=== PATIENT | male | born 1990 | race African-American/Black ===

== ENCOUNTER 2023-11-03 16:21 | Observation (INO) ==
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
[2023-11-03 17:10] LABS: Basophils # (auto) 0.04 K/uL (0.00-0.20); Basophils % (auto) 0.7 %; Eosinophils # (auto) 0.38 K/uL (0.00-0.50); Eosinophils % (auto) 7.1 %; Hematocrit (blood only) 38.7 % (42.0-52.0); Hemoglobin 14.2 g/dl (14.0-18.0); Immature Granulocytes # (auto) 0.02 K/uL (0.01-0.20); Immature Granulocytes % (auto) 0.4 %; Lymphocytes # (auto) 1.93 K/uL (1.20-3.40); Lymphocytes % (auto) 36.1 %; Mean Corpuscular Hemoglobin 30.3 pg (25.0-34.0); Mean Corpuscular Hgb Conc 36.7 g/dL (32.0-36.0); Mean Corpuscular Volume 82.7 fL (80.0-100.0); Monocytes # (auto) 0.52 K/uL (0.11-0.59); Monocytes % (auto) 9.7 %; Neutrophils # (auto) 2.46 K/uL (1.40-6.50); Platelet Count 245 K/uL (130-400); RDW Coefficient of Variation 12.4 % (11.5-14.5); RDW Standard Deviation 37.7 fL (36.4-46.3); Red Blood Count 4.68 M/uL (4.70-6.10); White Blood Count 5.35 K/ul (4.8-10.8)
[2023-11-03 17:28] LABS: Albumin Globulin Ratio 1.4 (0.9-2); Albumin Level 4.3 gm/dl (3.4-5.0); BUN Creatinine Ratio 15.2 (10-20); Bilirubin,Total 0.4 mg/dl (0.2-1.0); Calcium 9.6 mg/dl (8.6-10.3); Creatinine Clr Calc Pharmacy 117.7 ml/min; Est GFR (African American) 113.9 ml/min; Est GFR (Non-African American) 98.3 ml/min; Globulin 3.1 gm/dl (2.5-4.0); Potassium 4.3 mmol/L (3.5-5.1); Total Protein 7.4 gm/dl (6.0-8.3)
--- NOTE | 2023-11-03 17:32 | XRay Report ---
XR chest 1V portable HISTORY: Chest pain, nonspecific COMPARISON: None. FINDINGS: The lungs are clear. Cardiac silhouette is normal in size. No pleural effusions. No pneumot horax. There is an old, healed left posterior sixth rib fracture. IMPRESSION: No acute process. ACT 112: Negative or not required by law. Electronically signed by: Clyde Martini M.D. 11/03/2023 5:30 PM
[2023-11-03 17:33] LABS: Troponin I High Sensitivity 4.4 pg/ml (0-20)
[2023-11-03 17:38] LABS: Partial Thromboplastin Ratio 0.9; Partial Thromboplastin Time 24 Seconds (21-31); Prothrombin Time 10.9 Seconds (9.0-12.0)
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
[2023-11-03] MEDS ORDERED: POLYETHYLENE (MIRALAX) 17 GM PACK PO PRN (21:39)
[2023-11-03] MEDS ORDERED: ONDANSETRON INJ 2 MG/ML 2 ML VIAL IV PRN (21:39)
[2023-11-03] MEDS: ATORVASTATIN 40 MG TAB PO SCH (23:02)
[2023-11-03] MEDS: ACETAMINOPHEN 325 MG TAB PO PRN (23:03)
[2023-11-03] MEDS: ENOXAPARIN INJ 40 MG/0.4 ML SYR SQ SCH (23:03)
--- NOTE | 2023-11-04 07:15 | Electrocardiogram Report ---
Test Reason : Blood Pressure : / mmHG Vent. Rate : 068 BPM Atrial Rate : 068 BPM P-R Int : 156 ms QRS Dur : 084 ms QT Int : 366 ms P-R-T Axes : 058 003 -56 degrees QTc Int : 389 ms Normal sinus rhythm T wave abnormality, consider inferior ischemia T wave abnormality, consider anterolateral ischemia Abnormal ECG No previous ECGs available Confirmed by Kody Carrasquillo ([id number]) on 11/04/2023 7:15:07 AM Referred By: Alejandro CRAIN Confirmed By:Brandon Carrasquillo
--- NOTE | 2023-11-04 07:15 | Electrocardiogram Report ---
Test Reason : Blood Pressure : / mmHG Vent. Rate : 061 BPM Atrial Rate : 061 BPM P-R Int : 162 ms QRS Dur : 084 ms QT Int : 390 ms P-R-T Axes : 075 015 -54 degrees QTc Int : 392 ms Normal sinus rhythm Lateral injury pattern ACUTE OR / STEMI Abnormal ECG Confirmed by Kody Carrasquillo ([id number]) on 11/04/2023 7:15:35 AM Referred By: Alejandro CRAIN Confirmed By:Brandon Carrasquillo
[2023-11-04 08:07] LABS: Hematocrit (blood only) 38.9 % (42.0-52.0); Hemoglobin 14.1 g/dl (14.0-18.0); Mean Corpuscular Hemoglobin 30.1 pg (25.0-34.0); Mean Corpuscular Hgb Conc 36.2 g/dL (32.0-36.0); Mean Corpuscular Volume 82.9 fL (80.0-100.0); Mean Platelet Volume 11.1 fL (9.4-12.4); Platelet Count 230 K/uL (130-400); RDW Coefficient of Variation 12.5 % (11.5-14.5); RDW Standard Deviation 37.8 fL (36.4-46.3); Red Blood Count 4.69 M/uL (4.70-6.10); White Blood Count 5.69 K/ul (4.8-10.8)
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
[2023-11-04 08:26] LABS: BUN Creatinine Ratio 16.1 (10-20); Calcium 9.5 mg/dl (8.6-10.3); Creatinine Clr Calc Pharmacy 100.8 ml/min; Est GFR (African American) 122.8 ml/min; Potassium 3.9 mmol/L (3.5-5.1)
[2023-11-04 08:32] LABS: Troponin I High Sensitivity 4.4 pg/ml (0-20)
[2023-11-04] MEDS: ASPIRIN 81 MG ECTAB PO SCH (10:29)
[2023-11-04] MEDS: LISINOPRIL/HCTZ 10/12.5MG TAB PO SCH (10:29)
[2023-11-04] MEDS: CETIRIZINE HCL 10 MG TABLET PO SCH (10:29)
[2023-11-04] MEDS: PANTOprazole 40 MG TAB PO SCH (13:52)
--- NOTE | 2023-11-04 14:17 | Hospitalist Progress Note ---
Date of Service November 04, 2023 Assessment & Plan (1) Atypical chest pain: (2) Abnormal resting ECG findings: (3) Chest pain: (4) HTN (hypertension): (5) Dyslipidemia: Plan: Patient presented to the ED with chest pain/pressure for the last 3 days. The chest pain was on the left side and nonradiating. EKG on admission showed normal sinus rhythm with T wave inversion in inferior lateral leads and ST elevation in anterior leads. High sensitive troponin negative Echocardiogram shows EF of 60 to 65%; mild concentric LVH. No significant valvular abnormalities. Monitor for recurrence of chest pain Protonix added, along with Lipitor Continue lisinopril/hydrochlorothiazide Telemonitoring Chronic conditions; Hypertensioncontinue lisinoprilhydrochlorothiazide Allergic rhinitis- cetirizine Please note the above document was generated using voice recognition software. It may contain grammatical, syntax or spelling errors. Any formal questions or concerns about the content, text or information contained within the body of this dictation should be directly addressed to the provider for clarification Admission and Anticipated Discharge Date Admission Date: November 03, 2023 Subjective Patient seen and examined at bedside. He is comfortable lying in the bed; not in distress. He denies any chest pain at this present time No significant events on telemetry Review of Systems Review of Systems: All systems reviewed & are unremarkable except as noted in Subjective Physical Exam Physical Exam: Constitutional: Alert oriented x 3; not in distress. Respiratory: normal respiratory effort, lungs clear to auscultation, no wheeze, rales, rhonchi. Normal insp/exp effort, no accessory muscle use Cardiovascular: RRR, no murmur, no edema Vessels: no JVD or carotid bruit Chest: normal inspection of chest Abdomen: normal bowel sounds, soft, nontender, no hepatosplenomegaly Musculoskeletal: no cyanosis or clubbing, extremities motor strength 5/5 Skin: no rashes, warm and dry normal turgor Neurologic: PERRL, EOMI, accommodation nl, no face palsy, no dysarthria CN's II- XI intact bilaterally and moves all extremities Psychiatric: A+Ox3, euthymic affect Results & Data Results & Data Vital Signs (Past 12 Hours) Vital Signs Temp Pulse Pulse Resp BP Pulse Ox O2 Del Method 11/04/23 11:26 36.7 C 65 20 129/78 99 Room Air 11/04/23 08:44 36.7 C 64 18 130/77 98 Room Air 11/04/23 07:22 64 11/04/23 03:46 36.6 C 69 20 124/75 98 Room Air (3) Chest pain Chest pain type: unspecified Qualified Code(s): R07.9 - Chest pain, unspecified (4) HTN (hypertension) Hypertension type: unspecified Qualified Code(s): I10 - Essential (primary) hypertension
[2023-11-05 08:54] LABS: BUN Creatinine Ratio 20.4 (10-20); Calcium 9.9 mg/dl (8.6-10.3); Creatinine Clr Calc Pharmacy 92.8 ml/min; Est GFR (African American) 122.8 ml/min; Potassium 4.1 mmol/L (3.5-5.1)
--- NOTE | 2023-11-05 11:09 | Electrocardiogram Report ---
Test Reason : Blood Pressure : / mmHG Vent. Rate : 066 BPM Atrial Rate : 066 BPM P-R Int : 156 ms QRS Dur : 080 ms QT Int : 372 ms P-R-T Axes : 067 021 -59 degrees QTc Int : 389 ms Normal sinus rhythm T wave abnormality, consider inferolateral ischemia Abnormal ECG Confirmed by Kody Carrasquillo ([id number]) on 11/05/2023 11:09:17 AM Referred By: Alejandro CRAIN Confirmed By:Brandon Carrasquillo
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
== END 2023-11-05 15:05 | disposition home or self-care (01) ==
LOC: ED 16:21 → 2W 16:21 → SUATTDRO 18:07 → 2W 20:49